=== PATIENT | female | born 1995 | race Hispanic/Latino ===

== ENCOUNTER 2017-08-10 06:30 | Inpatient (IN) | payer OTHER ==
[2017-08-10] MEDS ORDERED: Ringers Lactate 1,000 ML IV ONE (07:24)
[2017-08-10 07:54] LABS: RPR Titer ND
[2017-08-10 07:57] LABS: Absolute Lymphocytes (CBC) 1.2 K/uL (0.7-4.9); Absolute Monocytes 0.6 K/uL (0.1-1.3); Absolute Neutrophil 8.5 K/uL (1.8-8.0); Basophils % 0.4 % (0-1.3); Eosinophils % 0.6 % (0-4.4); Hematocrit 33.3 % (36.0-45.0); Lymphocytes % 11.3 % (15.3-44.8); MCH 26.9 pg (27.0-35.0); MPV 11.3 fL (7.6-11.3); RBC Red Blood Cell Count 4.06 M/uL (3.86-4.86)
[2017-08-10 07:58] LABS: Urine Appearance CLEAR; Urine Bilirubin NEGATIVE (NEG); Urine Blood NEGATIVE (NEG); Urine Color YELLOW; Urine Glucose NEGATIVE (NEG); Urine Protein NEGATIVE (NEG); Urine Specific Gravity 1.015 (1.005-1.030); Urine Urobilinogen 0.2 mg/dL (0.2-1.0); Urine pH 6.5 (5.0-7.0)
[2017-08-10 08:20] LABS: Urine Bacteria <20 /HPF (<20); Urine Culture Reflex Order NOT NEEDED; Urine RBC <5 /HPF (NONE SEEN)
[2017-08-10 09:10] VITALS: BMI 22.8
[2017-08-10] MEDS ORDERED: BUTORPHANOL 1 MG/ML INJ IV PRN (09:41)
[2017-08-10] MEDS ORDERED: CARBOPROST TROME 250 MCG/ML IM PRN (09:41)
[2017-08-10] MEDS ORDERED: Ringers Lactate 1,000 ML IV PRN (09:41)
[2017-08-10] MEDS ORDERED: PROMETHAZINE 25 MG/ML VIAL IV PRN (09:41)
[2017-08-10] MEDS ORDERED: METHYLERGONOVINE 0.2MG/ML AMP IM PRN (09:41)
[2017-08-10] MEDS ORDERED: LIDOCAINE 2% 20 ML MDV SQ ONE (09:42)
[2017-08-10] MEDS ORDERED: OXYTOCIN/LR 20 UNIT/1,000 ML BAG IV SCH ×2 (10:00→15:00)
--- NOTE | 2017-08-10 12:23 | P.HP ---
Certification for Inpatient Patient admitted to: Inpatient With expected LOS: >2 Midnights Patient will require the following post-hospital care: None Practitioner: I am a practitioner with admitting privileges, knowledge of patient current condition, hospital course, and medical plan of care. Services: Services provided to patient in accordance with Admission requirements found in Title 42 Section 412.3 of the Code of Federal Regulations Patient History Date of Service: 08/10/17 Reason for admission: Painful contractions History of Present Illness: 21 y.o. at 39+ weeks presents due to painful contractions. She had care at [facility], but preferred to come here to be assessed. On admission, she was noted to be dilated to 3 cm per RN exam and having contractions every 2-4 min per report. On discussion with her, she denies past medical history, complications with this such as diabetes or elevated blood pressures or other issues. We have requested her records. GBS reportedly negative. Allergies No Known Drug Allergies Allergy (Verified 08/10/17 08:45) Unknown No Known Allergies Allergy (Uncoded 12/28/16 13:23) Unknown Home Medications: Ferrous Sulfate [Iron] 1 pill PO BID 08/10/17 Vit/Fe Fumarate/FA [ S Tablet] 1 pill PO DAILY 08/10/17 Vit C/Ascorb Sod/Multivit-Min [Emergen-C 500 mg Chewable Tab] 1 pill PO TID 03/29 - Past Medical/Surgical History Diabetic: No -: Infected spider bite to lower abdomen as baby - Social History Smoking Status: Never smoker Alcohol use: No CD- Drugs: No Caffeine use: No Place of Residence: Home Review of Systems 10-point ROS is otherwise unremarkable Physical Examination - Vital Signs Respirations: 20 - Physical Exam General: Alert, In no apparent distress, Oriented x3 Respiratory: Other (Normal effort) Cardiovascular: Normal pulses Musculoskeletal: No swelling, No tenderness Integumentary: No rashes, No breakdown Neurological: Normal speech - Studies Laboratory Data (last 24 hrs) 08/10/17 07:36: WBC 10.5, Hgb 10.9 L, Hct 33.3 L, Plt Count 178 Female Exam - Female Pelvic Cervix: Dilation (4 cm), Effacement (90), station (Ballotable), Other ( Bulging bag) Uterus: Non-tender, Soft, Gravid - Obstetrics heart rate tracing: Category 1 Contractions: Frequency (3-4 min) Amniotic membrane: AROM (Clear fluid noted) Assessment and Plan - Problems (Diagnosis) (1) Spontaneous onset of labor Current Visit: Yes Status: Acute Plan: Admit to L&D for labor management. Labs/UDS ordered. Pt initally declined an epidural, but is considering one now as pain is increasing. Discussed AROM and she accepted; AROM done without incident. Clear fluid noted. Will give IVF bolus and place wilson with epidural. She denies questions/ - Advance Directives Does patient have a Living Will: No Does patient have a Durable POA for Healthcare: No
[2017-08-10] MEDS ORDERED: ROPIVACAINE HCL 100 ML IV PRN (12:28)
[2017-08-10] MEDS ORDERED: FENTANYL CITR 100 MCG/2 ML IV ONE (12:29)
[2017-08-10] MEDS ORDERED: ROPIVACAINE HCL 0.2% 20ML AMP IV PRN (12:31)
[2017-08-10 14:25] LABS: Barbiturates NEGATIVE (NEGATIVE); Benzodiazepines NEGATIVE (NEGATIVE); Cocaine NEGATIVE (NEGATIVE); METHAMPHETAM NEGATIVE (NEGATIVE); Methadone NEGATIVE (NEGATIVE); Opiates NEGATIVE (NEGATIVE); Phencyclidine NEGATIVE (NEGATIVE); THC Cannibis NEGATIVE (NEGATIVE)
--- NOTE | 2017-08-10 19:50 | P.OP ---
Preoperative diagnosis: Spontaneous labor, Term IUP Postoperative diagnosis: Same Primary procedure: Secondary procedure: curettage Anesthesia: Epidural Estimated blood loss: 400 cc Specimen: None Findings: See operative report Operative Technique: FINDINGS: Female fetus in OA position, APGARS of 9/9 at 1 and 5 minutes respectively, weight of 7 lb 2 oz, clear amniotic fluid. Loose nuchal cord x1. Normal appearing placenta. Right labial tear. Stage I: 10h 41 min; Stage II : 22 min. Retained placental membranes. HISTORY OF PRESENT ILLNESS: The patient is a 21-year-old female who is a at 39w1d who was admitted for spontaneous onset of labor. She had adequate care and was uncomplicated per report. On admission , she was noted to be 4 cm. She denied complaints and noted positive movement. PROCEDURE DETAILS: The patient was admitted to Labor and Delivery for expectant management of labor. She had AROM with clear fluid noted. Pain increased and she requested an epidural. It was placed with good result. Labor progressed normally. She had a spontaneous vaginal delivery of a live born female with clear fluid from an OA position over an intact perineum at 19:27. After controlled delivery of the head, a loose nuchal cord was noted, which was quickly reduced. Next, the shoulders and body followed without difficulty. Bulb suctioning was done. The was placed on the patient's abdomen for skin to skin contact. The cord was clamped and cut. Findings as stated above. There was no depression. was crying, vigorous, and moving all extremities. Spontaneous delivery of an intact placenta with a three-vessel cord was noted at 19:32. Retained membranes were noted and bi-manual exam was done. Membranes were palpable and gently removed using ring clamps. Additional membranes were noted and gentle curettage was done using the banjo curette. Membranes were removed and bi-manual exam was repeated, expressing some blood clots. Uterus was firm and bleeding was controlled. On examination, were no midline lacerations. A right labial tear was noted on vaginal exam. It was repaired in a running unlocked fashion using 3-0 chromic. Hemostasis was noted. There were no vaginal side wall lacerations. Patient tolerated procedure well and there were no complications. Estimated blood loss was 400 cc. Mother and are in recovery doing well at this time. Complications: None Fluids & blood products: mIVF Transferred to: Recovery Room Condition: Good
[2017-08-10] MEDS ORDERED: METOCLOPRAMIDE 5 MG TAB PO PRN (19:51)
[2017-08-10] MEDS ORDERED: BISACODYL 10 MG RECTAL SUPP RECT PRN (19:51)
[2017-08-10] MEDS ORDERED: ONDANSETRON 4 MG (ODT) TAB PO PRN (19:51)
[2017-08-10] MEDS ORDERED: ACETAMINOPHEN 500 MG TAB PO PRN (19:51)
[2017-08-10] MEDS ORDERED: DIPHENHYDRAMINE 25 MG TAB/CAP PO PRN (19:51)
[2017-08-10] MEDS ORDERED: DOCUSATE NA/SENNA CONC 1 TAB PO PRN (19:51)
[2017-08-10] MEDS ORDERED: NA CHLORIDE 0.9% 500 ML IV SCH (20:00)
[2017-08-10] MEDS: IBUPROFEN 200 MG TAB PO PRN (23:35)
[2017-08-10 23:53] LABS: RPR (Rapid Plasma Reagin) NON-REACT (NON-REACT)
[2017-08-11 04:45] LABS: Hematocrit 28.9 % (36.0-45.0); MCH 27.3 pg (27.0-35.0); MCV 81.1 fL (80-100); MPV 11.1 fL (7.6-11.3); RBC Red Blood Cell Count 3.56 M/uL (3.86-4.86)
[2017-08-11] MEDS: IBUPROFEN 200 MG TAB PO PRN ×2 (07:30→16:00)
--- NOTE | 2017-08-11 12:28 | P.DS ---
Admission Date: 08/10/17 Discharge Date: 08/13/17 Disposition: ROUTINE DISCHARGE Comment: Rounding with d/c summary Discharge Condition: GOOD Reason for Admission: Painful contractions Brief History of Present Illness: 21 y.o. at 39+ weeks presents due to painful contractions. She had care at [facility], but preferred to come here to be assessed. On admission, she was noted to be dilated to 3 cm per RN exam and having contractions every 2-4 min per report. On discussion with her, she denies past medical history, complications with this such as diabetes or elevated blood pressures or other issues. We have requested her records. GBS reportedly negative. Hospital Course: Patient was admitted for management of spontaneous onset of labor. Labor course was uncomplicated and she had a normal vaginal delivery of a healthy baby girl. She is breast-feeding. Bleeding after delivery was noted to be within normal limits. She is stable for discharge home day 1. Vital Signs/Physical Exam: Temp Pulse Resp BP Pulse Ox 97.0 F 93 H 16 128/69 08/11/17 11:35 08/11/17 11:35 08/11/17 11:35 08/11/17 11:35 General: Alert, In no apparent distress, Oriented x3 Respiratory: Other (Normal effort) Cardiovascular: Normal pulses Gastrointestinal: Soft and benign, No tenderness, Other (Uterus firm and at level of umbilicus) Musculoskeletal: No swelling, No erythema, No tenderness Integumentary: No rashes, No breakdown Neurological: Normal speech, Normal strength at 5/5 x4 extr Laboratory Data at Discharge: WBC 14.3 K/uL (4.3-10.9) H D 08/11/17 04:16 Hgb 9.7 g/dL (12.0-15.0) L 08/11/17 04:16 Hct 28.9 % (36.0-45.0) L 08/11/17 04:16 Plt Count 139 K/uL (152-406) L D 08/11/17 04:16 Home Medications: Ferrous Sulfate [Iron] 1 pill PO BID 08/10/17 Vit/Fe Fumarate/FA [ S Tablet] 1 pill PO DAILY 08/10/17 Vit C/Ascorb Sod/Multivit-Min [Emergen-C 500 mg Chewable Tab] 1 pill PO TID 03/29 Ibuprofen 800 mg PO Q8HP PRN #30 tablet 08/11/17 New Medications: Ibuprofen 800 mg PO Q8HP PRN #30 tablet PRN Reason: Abdominal Cramps Patient Discharge Instructions: Complete pelvic rest for 6 weeks . Notify doctor of heavy bleeding, foul-smelling discharge, fever/chills, or other signs of infection. See physician in 6 weeks for exam. Diet: Regular Followup: Carmencita Aguilar MD [ACTIVE - CAN ADMIT] - (Follow up care with your OB or Dr. Aguilar in 6 weeks. [phone])
[2017-08-11 21:34] VITALS: BP 141/83; TEMP 97.3
[2017-08-13 20:37] LABS: HBsAG Nonreactive (Nonreactive)
== END 2017-08-11 23:10 | disposition home or self-care (01) | DRG 767 ==
LOC: L&D 06:30 → 2ND-WC 08:33
PROVIDERS: ADMIT Obstetrics & Gynecology; ATTEND Obstetrics & Gynecology
PROC: 10E0XZZ Delivery of Products of Conception, External Approach (ICD-10-PCS; principal; 2017-08-10)
PROC: 10D17Z9 Manual Extraction of Products of Conception, Retained, Via Natural or Artificial Opening (ICD-10-PCS; 2017-08-10)
PROC: 0HQ9XZZ Repair Perineum Skin, External Approach (ICD-10-PCS; 2017-08-10)
PROC: 10907ZC Drainage of Amniotic Fluid, Therapeutic from Products of Conception, Via Natural or Artificial Opening (ICD-10-PCS; 2017-08-10)
DX: O69.81X0 Labor and delivery complicated by cord around neck, without compression, not applicable or unspecified (principal); O70.0 First degree perineal laceration during delivery; O73.0 Retained placenta without hemorrhage; Z3A.39 39 weeks gestation of pregnancy; Z37.0 Single live birth
CPT/HCPCS: 36415; 80307; 81001; 85025; 85027; 86592; 86762; 86850; 86900; 86901; 87340; G0433; J0595; J2210; J2590; J2795; J3010

== ENCOUNTER 2022-02-05 16:40 | Emergency (ER) | payer BC, OTHER ==
--- OUTSIDE RECORDS SUMMARY | 2022-02-05 16:43 | XMS REPORT | Continuity of Care Document ---
:1995 Author Organization [facility] t Address [address] [place] [address] [address]. [address] [place] [address] Care Team Providers Name Role Phone PCP, PATIENT DOES NOT HAVE A Primary Care Physician Unavaila RAMBO Gooden Attending Clinician Unavailable RAMBO MAXWELL Attending Clinician Unavailable LAVONNE URIBE Attending Clinician Unavailable Lavonne Andrade Attending Clinician Callie Ribeiro Attending Clinician CALLIE MARTINEZ Attending Clinician Unavailable Doctor Unassigned, [place] Attending Clinician Unavailable Asuncion [place] Attending Clinician [phone] Payers Payer Name Policy Type Policy Number Effective Date Expiration Date [facility] [id number] 2019 00:00:00 Problems Condition Condition Condition Status Onset Resolution Last Treating Co mments Source Name Details Category Date Date Treatment Clinician Date Nexplanon Nexplanon Disease Active Uni vers in place in place 10-21 ity of 00:00: [address] Branch Screen for Screen for Disease Active U nivers STD STD 06 ity of (sexually [place] transmit[place] 00 [place] dical d disease) d disease) Br anch Allergies, Adverse Reactions, Alerts Allergy Allergy Status Severity Reaction(s) Onset Inactive Treating Comm ents Source Name Type Date Date Clinician NO KNOWN Drug Active Univers ALLERGIE Class ity of S [facility] Social History Social Habit Start Date Stop Date Quantity Comments Source History of 2016-04-15 Cigarette Smoker Universi ty of tobacco use 00:00:00 [facility] Exposure to Not sure [facility] SARS-CoV-2 [facility] (event) Branch Alcohol intake 2020-11-06 2020-11-06 Current University of 00:00:00 00:00:00 non-drinker of [facility] alcohol (finding) Branch Tobacco use and 2019-11-07 2019-11-07 Never used Universit y of exposure 00:00:00 00:00:00 [facility] Tobacco Comment 2017-10-15 2017-10-15 smokes 2 times Unive rsity of 00:00:00 00:00:00 weekly [facility] Sex Assigned At [birth year] Universit y of 00:00:00 00:00:00 [facility] Smoking Status Start Date Stop Date Source Former smoker 2019-11-07 00:00:00 2019-11-07 00:00:00 [facility] Medications Ordered Filled Start Stop Current Ordering Indication Dosage Frequency Signature Comments Components Source Medication Medication Date Date Medication? Clinician (SIG) Name Name No known No Univers medications 11-06 ity of 15:51: [address] Immunizations Ordered Filled Immunization Date Status Comments Sourc e Immunization Name Name Influenza Virus 2019-11-07 Completed Universit y of Vaccine Quad .5 mL 00:00:00 [facility] IM 6+ MO Branch TDAP 2017-06-16 Completed University of 00:00:00 [facility] Influenza Virus 2017-04-15 Completed Universit y of Vaccine Quad IM 3+ 00:00:00 [facility] Vital Signs Vital Name Observation Time Observation Value Comments Source Systolic blood 2020-11-06 20:40:00 142 mm[Hg] Univer sity of pressure [facility] Diastolic blood 2020-11-06 20:40:00 87 mm[Hg] Unive rsity of pressure [facility] Heart rate 2020-11-06 20:39:00 78 /min Universi ty of [facility] Body temperature 2020-11-06 20:39:00 37.28 Lexi [facility] Respiratory rate 2020-11-06 20:39:00 16 /min [facility] Body height 2020-11-06 20:39:00 154.9 cm [facility] Body weight 2020-11-06 20:39:00 55.849 kg [facility] BMI 2020-11-06 20:39:00 23.26 kg/m2 [facility] Procedures Procedure Date / Time Performed Performing Clinician Sourc e HIV 1/2 AG-AB WITH 2020-11-06 21:01:00 Lavonne Uribe [facility] Encounters Start End Encounter Admission Attending Care Care Encounter Source Date/Time Date/Time Type Type Clinicians Facility Department ID 2022-02-07 2022-02-07 Outpatient RAMBO LEMA [facility] U [facility] [id number] Univers 11:30:00 11:30:00 RAMBO MAXWELL [facility] 2021-11-06 2021-11-06 Outpatient Renae URIBE [facility] [id number] Univers 15:15:00 15:15:00 LAVONNE mixon [facility] 2020-11-06 2020-11-06 Office JojoRUST [id number] Univers 15:14:23 15:59:43 Visit Lavonne Macdonald [employer] [id number] ity [facility] [id number] Jay Jay as MATERNAL [phone] [facility] [address] [place] [address] 2020-11-06 2020-11-06 [facility] [id number] Univers 15:15:00 15:15:00 LAVONNE mixon [facility] 2020-10-25 2020-10-25 Office MichelleRUST [id number] Univers 14:22:31 14:57:25 Visit Callie Penaloza [employer] [id number] it y REGIONAL [id number] Jay Jay as MATERNAL [id number] [facility] [address] [place] [address] 2020-10-25 2020-10-25 Outpatient R MICHELLE [facility] [id number] Univers 14:30:00 14:30:00 CALLIE itstefania of [facility] 2020-10-25 2020-10-25 Orders Doctor JURADO [id number] Univers 00:00:00 00:00:00 Only Unassigned, BONG [id number] ity of [place] [facility] [id number] Jay Jay as [phone] [address] 2020-10-25 2020-10-25 Orders Doctor RHIANNON [id number] Univers 00:00:00 00:00:00 Only Unassigned, BONG [id number] ity of [place] [facility] [id number] Jay Jay as [id number] [address] 2020-10-23 2020-10-23 [facility] [id number] Univers 10:15:00 10:15:00 LAVONNE jarquin o f [facility] 2020-09-21 2020-09-21 Telephone IlsaRUST [id number] Univers 00:00:00 00:00:00 Asuncion Ramirez [employer] [id number] ity of [facility] [id number] Jay Jya as MATERNAL [phone] [facility] [address] 2019-11-07 2019-11-07 Office JojoRUST [id number] Univers 14:52:48 16:18:02 Visit Lavonne Macdonald [employer] [id number] ity of REGIONAL [id number] Jay Jay as MATERNAL [id number] [facility] [address] 2019-11-07 2019-11-07 Outpatient R [facility] [id number] Univers 14:45:00 14:45:00 ity of [facility] 2019-11-07 2019-11-07 Orders Doctor JURADO [id number] Univers 00:00:00 00:00:00 Only Unassigned, BONG [id number] ity of [place] [facility] [id number] Jay Jay as [phone] [address] Results Test Description Test Time Test Comments Results Result Comments Source HIV 1/2 AG-AB WITH REFLEX 2020-11-07 04:34:17 Test Item Value Reference Range Interpretation Comme nts HIV Semi-quantitative (test code = Negative Negative 89549-5) LEAH (test code = LEAH) Non-reactive for HIV-1 antigen and HIV-1/HIV-2 antibodies. ?No laboratory evidence of HIV infection. ?Repeat in 2-4 weeks if acute HIV infection is suspected. [facility]
[2022-02-05 19:42] LABS: Urine Blood 1+ (Negative); Urine Glucose Negative (Negative); Urine Protein Negative (Negative); Urine Specific Gravity 1.025 (1.005-1.030)
[2022-02-05 19:56] LABS: Urine Specific Gravity/Preg 1.025 (1.005-1.030)
[2022-02-05 19:59] LABS: Urine Bacteria <20 /HPF (<20); Urine Mucus Slight /HPF (None Seen); Urine RBC <5 /HPF (None Seen)
--- NOTE | 2022-02-05 20:04 | RAD REPORT ---
EXAM DESCRIPTION: US - Transvaginal Study Probe - 02/05/2022 7:11 pm CLINICAL HISTORY: VAGINAL BLEEDING COMPARISON: <Comparisons>none TECHNIQUE: Endovaginal sonography was performed. FINDINGS: No intrauterine gestational sac or sac remnant. No hematoma, mass or other focal endometri al abnormality. Endometrium measures 10 mm. Endometrium-myometrium interface is normal. Uterus is 8.8 x 4.1 x 5.0 cm. No myometrial mass. Both ovaries are identified and show small cysts or follicles. No dominant solid or cystic ovarian or adnexal finding. Doppler evaluation shows blood flow within the bilateral ovarian stroma. IMPRESSION: Unremarkable pelvic ultrasound.
[2022-02-05 20:24] LABS: Absolute Lymphocytes (CBC) 2.9 K/uL (0.7-4.9); Hematocrit 38.5 % (36.0-45.0); Lymphocytes % 30.6 % (15.3-44.8); MCV 80.7 fL (80-100); RBC Red Blood Cell Count 4.77 M/uL (3.86-4.86)
[2022-02-05 20:46] LABS: Albumin 3.8 g/dL (3.4-5.0); Bilirubin Total 0.2 mg/dL (0.2-1.0); Potassium 3.3 mmol/L (3.5-5.1); Protein, Total 7.3 g/dL (6.4-8.2)
--- NOTE | 2022-02-05 20:50 | ER ---
Nurse's Notes [facility] Name: Everett Siddiqui Age: 26 yrs Sex: Female : 1995 Arrival Date: 02/05/2022 Time: 16:45 Bed 10 Private MD: Diagnosis: Abnormal uterine and vaginal bleeding, unspecified Presentation: 02/05 18:21 Chief complaint: Patient states: Heavy vaginal bleeding x 6 days. Coronavirus screen: ss Client denies travel out of the [place] in the last 14 days. Ebola Screen: Patient denies exposure to infectious person. Patient denies travel to an Ebola-affected area in the 21 days before illness onset. Initial Sepsis Screen: Does the patient meet any 2 criteria? No. Patient's initial sepsis screen is negative. Does the patient have a suspected source of infection? No. Patient's initial sepsis screen is negative. Risk Assessment: Do you want to hurt yourself or someone else? Patient reports no desire to harm self or others. Onset of symptoms was January 30, 2022. 18:21 Method Of Arrival: Ambulatory ss 18:21 Acuity: ROXANNE 3 Triage Assessment: 21:10 General: Appears in no apparent distress. Behavior is calm, cooperative, appropriate tw5 for age. [employer]: 21:10 LMP 02/05/2022 tw5 Historical: - Allergies: 18:24 No Known Allergies; ss - Home Meds: 18:24 None [Active]; ss - PMHx: 18:24 None; ss - PSHx: 18:24 Appendectomy; ss - Immunization history:: Client reports having NOT received the Covid vaccine. - Social history:: Smoking status: Patient denies any tobacco usage or history of. Screenin:04 [facility] ED Fall Risk Assessment (Adult) History of falling in the last 3 months, tw5 including since admission. Abuse screen: Denies threats or abuse. Denies injuries from another. Nutritional screening: No deficits noted. Tuberculosis screening: No symptoms or risk factors identified. Assessment: 20:04 General: Reports "I have since Thursday been experiencing some really heavy bleeding. I tw5 am soaking through the tampons every couple of hours. I have lower back pain and cramping. This has very consistent since Thursday. I called my doc and they didn't have anything for three weeks and they advised that I go to the ER or urgent care.". Pain: Complains of pain in low back area and suprapubic area Pain currently is 6 out of 10 on a pain scale. Neuro: No deficits noted. Cardiovascular: No deficits noted. Respiratory: No deficits noted. : Reports vaginal bleeding that is bright red, with clots, heavy flow. 21:10 Reassessment: Patient appears in no apparent distress at this time. No changes from tw5 previously documented assessment. Vital Signs: 18:21 BP 135 / 98; Pulse 78; Resp 15; Temp 98; Pulse Ox 100% on R/A; Weight 61.23 kg; Height ss 5 ft. 1 in. (154.94 cm); Pain 6/10; 20:04 BP 118 / 75; Pulse 72; Resp 18; Pulse Ox 97% on R/A; Pain 6/10; tw5 18:21 Body Mass Index 25.51 (61.23 kg, 154.94 cm) ss ED Course: 16:45 Patient arrived in ED. am2 16:55 Shireen Gutiérrez FNP-C is PHCP. snw 16:55 Ash Rivera MD is Attending Physician. snw 18:24 Triage completed. ss 18:24 Arm band placed on right wrist. ss 19:13 US Transvaginal Study (Probe) In Process Unspecified. EDMS 19:33 Katlyn Parra is Primary Nurse. tw5 20:04 Awaiting lab results. tw5 20:04 Patient has correct armband on for positive identification. Placed in gown. Bed in low tw5 position. Call light in reach. Side rails up X 1. Pulse ox on. NIBP on. Door closed. Noise minimized. Moved to private room. Warm blanket given. Verbal reassurance given. 20:04 Initial lab(s) drawn, by me, sent to lab. Inserted saline lock: 20 gauge in right tw5 antecubital area, using aseptic technique. Blood collected. 20:16 Abo/rh Typing Sent. tw5 20:16 CBC with Diff Sent. tw5 20:16 Urine Culture Sent. tw5 21:10 No provider procedures requiring assistance completed. IV discontinued, intact, tw5 bleeding controlled, No redness/swelling at site. Pressure dressing applied. Administered Medications: No medications were administered Medication: 20:04 VIS not applicable for this client. tw5 Outcome: 20:49 Discharge ordered by MD. ludwig 21:10 Discharged to home ambulatory, with family. tw 21:10 Condition: good 21:10 Discharge instructions given to patient, Instructed on discharge instructions, follow up and referral plans. medication usage, Demonstrated understanding of instructions, follow-up care, medications, Prescriptions given X 1. 21:11 Patient left the ED. Signatures: Dispatcher [employer] EDMS Shireen Gutiérrez, PRESSURE TESTING TECHNICIAN-C PRESSURE TESTING TECHNICIAN-Alisia Ko RN RN Belinda Crum Tiffany Corrections: (The following items were deleted from the chart) 21:11 21:10 LMP 0 tw5
--- NOTE | 2022-02-05 20:50 | EDPHYS ---
Physician Documentation [facility] Name: Everett Siddiqui Age: 26 yrs Sex: Female : 1995 Arrival Date: 02/05/2022 Time: 16:45 Bed 10 Private MD: ED Physician Ash Rivera HPI: 02/05 20:50 This 26 yrs old Female presents to ER via Ambulatory with complaints of snw Vaginal Bleeding - 6 days, Pelvic Pain. 20:50 The patient presents with vaginal bleeding that is heavy, with clots. Onset: The snw symptoms/episode began/occurred suddenly, 6 day(s) ago. Modifying factors: The symptoms are alleviated by nothing. Associated signs and symptoms: The patient has no apparent associated signs or symptoms. Severity of symptoms: At their worst the symptoms were moderate, severe. The patient's method of control includes pt has her second implanted control, no problems before and no history of menorrhagia. . The patient has not experienced similar symptoms in the past. The patient has not recently seen a physician. LMP 01/01/22. 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 - Social history:: Smoking status: Patient denies any tobacco usage or history of. ROS: 20:50 Constitutional: Negative for fever, chills, and weight loss, Eyes: Negative for injury, snw pain, redness, and discharge, ENT: Negative for injury, pain, and discharge, Neck: Negative for injury, pain, and swelling, Cardiovascular: Negative for chest pain, palpitations, and edema, Respiratory: Negative for shortness of breath, cough, wheezing, and pleuritic chest pain, Abdomen/GI: Negative for abdominal pain, nausea, vomiting, diarrhea, and constipation, Back: Negative for injury and pain, MS/Extremity: Negative for injury and deformity, Skin: Negative for injury, rash, and discoloration, Neuro: Negative for headache, weakness, numbness, tingling, and seizure, Psych: Negative for depression, anxiety, suicide ideation, homicidal ideation, and hallucinations. 20:50 : Positive for vaginal bleeding, heavy vaginal bleeding for 6 days. Exam: 18:35 Constitutional: This is a well developed, well nourished patient who is awake, alert, snw and in no acute distress. Head/Face: Normocephalic, atraumatic. ENT: Nares patent. No nasal discharge, no septal abnormalities noted. Tympanic membranes are normal and external auditory canals are clear. Oropharynx with no redness, swelling, or masses, exudates, or evidence of obstruction, uvula midline. Mucous membranes moist. Neck: Trachea midline, no thyromegaly or masses palpated, and no cervical lymphadenopathy. Supple, full range of motion without nuchal rigidity, or vertebral point tenderness. No Meningismus. Chest/axilla: Normal chest wall appearance and motion. Nontender with no deformity. No lesions are appreciated. Cardiovascular: Regular rate and rhythm with a normal S1 and S2. No gallops, murmurs, or rubs. Normal PMI, no JVD. No pulse deficits. Respiratory: Lungs have equal breath sounds bilaterally, clear to auscultation and percussion. No rales, rhonchi or wheezes noted. No increased work of breathing, no retractions or nasal flaring. Abdomen/GI: Soft, non-tender, with normal bowel sounds. No distension or tympany. No guarding or rebound. No evidence of tenderness throughout. Back: No spinal tenderness. No costovertebral tenderness. Full range of motion. Skin: Warm, dry with normal turgor. Normal color with no rashes, no lesions, and no evidence of cellulitis. MS/ Extremity: Pulses equal, no cyanosis. Neurovascular intact. Full, normal range of motion. Neuro: Awake and alert, GCS 15, oriented to person, place, time, and situation. Cranial nerves II-XII grossly intact. Motor strength 5/5 in all extremities. Sensory grossly intact. Cerebellar exam normal. Normal gait. Psych: Awake, alert, with orientation to person, place and time. Behavior, mood, and affect are within normal limits. 18:35 Eyes: Periorbital structures: appear normal, Extraocular movements: no acute changes, Conjunctiva: pale, bilaterally. Vital Signs: 18:21 BP 135 / 98; Pulse 78; Resp 15; Temp 98; Pulse Ox 100% on R/A; Weight 61.23 kg; Height ss 5 ft. 1 in. (154.94 cm); Pain 6/10; 20:04 BP 118 / 75; Pulse 72; Resp 18; Pulse Ox 97% on R/A; Pain 6/10; tw5 18:21 Body Mass Index 25.51 (61.23 kg, 154.94 cm) ss MDM: 18:33 Patient medically screened. snw 20:49 Data reviewed: vital signs, nurses notes. Data interpreted: Pulse oximetry: on room air snw is 97 %. Interpretation: normal. Counseling: I had a detailed discussion with the patient and/or guardian regarding: the historical points, exam findings, and any diagnostic results supporting the discharge/admit diagnosis, lab results, radiology results, the need for outpatient follow up, to return to the emergency department if symptoms worsen or persist or if there are any questions or concerns that arise at home. Special discussion: Based on the patient's Hx, exam, and Dx evaluation, there is no indication for emergent surgery or inpatient Tx. It is understood by the patient/guardian that if the Sx's persist or worsen they need to return immediately for re-evaluation. Based on the history and exam findings, there is no indication for further emergent testing or inpatient evaluation. I discussed with the patient/guardian the need to see the OB Gyne specialist for further evaluation of the symptoms. I discussed with the patient/guardian the need to see the primary care provider for further evaluation of the symptoms. 02/05 16:56 Order name: Urine Culture snw 02/05 16:56 Order name: Urine Microscopic Only; Complete Time: 20:02 snw 02/05 18:32 Order name: CBC with Diff; Complete Time: 20:36 snw 02/05 18:32 Order name: CMP; Complete Time: 20:48 snw 02/05 18:32 Order name: Abo/rh Typing; Complete Time: 22:29 snw 02/05 19:42 Order name: Urine Dipstick-Ancillary; Complete Time: 19:44 EDMS 02/05 16:56 Order name: Urine Dipstick-Ancillary (obtain specimen); Complete Time: 20:02 snw 02/05 16:56 Order name: Urine Test (obtain specimen); Complete Time: 20:02 snw 02/05 18:32 Order name: IV Saline Lock; Complete Time: 20:16 snw 02/05 18:32 Order name: Labs collected and sent; Complete Time: 20:16 snw 02/05 18:32 Order name: NPO; Complete Time: 20:16 snw 02/05 18:32 Order name: US Transvaginal Study (Probe); Complete Time: 20:08 snw 02/05 19:45 Order name: Urine --Ancillary (enter results); Complete Time: 19:59 wm Administered Medications: No medications were administered Disposition Summary: 02/05/22 20:49 Discharge Ordered Location: Home snw Condition: Stable snw Diagnosis - Abnormal uterine and vaginal bleeding, unspecified snw Followup: snw - With: Emergency Department - When: As needed - Reason: Worsening of condition Followup: snw - With: Private Physician - When: 2 - 3 days - Reason: Recheck today's complaints, Continuance of care, Re-evaluation by your physician Discharge Instructions: - Discharge Summary Sheet snw - Abnormal Uterine Bleeding snw Forms: - Medication Reconciliation Form snw - Thank You Letter snw - Antibiotic Education snw - Prescription Opioid Use snw Prescriptions: - Diclofenac Sodium 75 mg Oral Tablet Sustained Release - take 1 tablet by ORAL route 2 times per day; 30 tablet; Refills: 0, Product snw Selection Permitted Signatures: Dispatcher [employer] Shireen Beaver, MARY-C MOVING VAN DRIVER-Csnw Alisia Barton, RN RN ss
[2022-02-05 21:51] VITALS: TEMP 98
[2022-02-05 21:55] VITALS: BP 118/75; O2SAT 97
== END 2022-02-05 21:11 | disposition home or self-care (01) ==
LOC: ER 16:40
DX: N93.9 Abnormal uterine and vaginal bleeding, unspecified (principal)
CPT/HCPCS: 36415; 76830; 80053; 81003; 81015; 81025; 85025; 86900; 86901; 87086; 87088